=== PATIENT | male | born 1970 | race Caucasian/White ===

== ENCOUNTER → 2022-09-15 10:23 | Outpatient (BNVA) | payer BC, SELFPAY | PROVIDERS: PCP Family Medicine; Visit Provider Family Medicine | DX: Z13.220 Encounter for screening for lipoid disorders (principal); Z00.00 Encounter for general adult medical examination without abnormal findings; R61 Generalized hyperhidrosis; Z51.81 Encounter for therapeutic drug level monitoring | CPT/HCPCS: 80053; 80061; 85025; 85651; 86141 ==